=== PATIENT | male | born 1945 | race Caucasian/White ===

== ENCOUNTER 2017-06-27 01:54 | Emergency (ER) | payer OTHER ==
[2017-06-27] MEDS ORDERED: ASPIRIN 81 MG CHEWABLE TAB ONE (02:11)
[2017-06-27] MEDS ORDERED: ASPIRIN 81 MG CHEWABLE TAB PO ONE (02:23)
--- NOTE | 2017-06-27 02:23 | CPEKG ---
Heart Rate: 69 RR Interval: 870 P-R Interval: 184 QRSD Interval: 136 QT Interval: 408 QTC Interval: 437 P Agness: 68 QRS Agness: 2 T Wave Agness: 33 EKG Severity - ABNORMAL ECG - EKG Impression: SINUS RHYTHM EKG Impression: RIGHT BUNDLE BRANCH BLOCK Electronically Signed By: Darya Lima 28-Jun-2017 07:52:40
[2017-06-27 02:37] LABS: % IMMATURE GRANULYOCYTES 0.2 % (0.0-1.1); ABSOLUTE IMMATURE GRANULOCYTES 0.02 10^3/uL (0.00-0.10); ADD DIFF? NO; ADD MORPH? NO; ADD SCAN? NO; ATYPICAL LYMPHOCYTE FLAG 10 (0-99); FRAGMENT RBC FLAG 0 (0-99); HEMATOCRIT 45.4 % (40.0-51.0); HEMOGLOBIN 15.4 g/dL (13.7-17.5); LEFT SHIFT FLG 0 (0-99); LIPEMIA HEMOLYSIS FLAG 90 (0-99); MEAN CELL HEMOGLOBIN 31.7 pg (27.9-34.1); MEAN CELL HEMOGLOBIN CONCENTR. 33.9 g/dL (32.4-36.7); MEAN CELL VOLUME 93.4 fL (81.5-99.8); MEAN PLATELET VOLUME 10.1 fL (8.7-11.7); PLATELET CLUMPS FLAG 10 (0-99); PLATELET COUNT 191 10^3/uL (150-400); RED BLOOD CELL COUNT 4.86 10^6/uL (4.40-6.38)
[2017-06-27 02:45] LABS: ANION GAP 11 mEq/L (8-16); CALCIUM 9.8 mg/dL (8.5-10.4); CARBON DIOXIDE 25 mEq/l (22-31); CHLORIDE 101 mEq/L (97-110); GLOMERULAR FILTRATION RATE > 60; GLUCOSE 83 mg/dL (70-100); POTASSIUM 3.9 mEq/L (3.5-5.2); SODIUM 137 mEq/L (134-144)
[2017-06-27 02:57] LABS: TROPONIN I < 0.012 ng/mL (0.000-0.034)
--- NOTE | 2017-06-27 04:51 | EDPHY ---
H & P Stated Complaint: LEFT STERNAL CP WITH MOVEMENT X4 HRS Time Seen by Provider: 06/27/17 02:09 HPI/ROS: HPI The patient presents with left-sided sharp chest pain which has been present for the last 4 hours, this started in slowly and felt like a muscle strain, it is not associated with any shortness of breath, nausea, vomiting, dizziness or diaphoresis. He has no prior history of similar. He denies any long car trips or airplane flight slightly. He does not have any leg swelling. He denies any recent URI type symptoms. REVIEW OF SYSTEMS Constitutional: No fever, no chills. Eyes: No discharge. ENT: No sore throat. Cardiovascular: No chest pain, no palpitations. Respiratory: No cough, no shortness of breath. Gastrointestinal: No abdominal pain, no vomiting. Genitourinary: No hematuria. Musculoskeletal: No back pain. Skin: No rashes. Neurological: No headache. PMHx: Hypertension, hyperlipidemia Soc Hx: Works as a therapist PHYSICAL General Appearance: Alert, no distress Eyes: Pupils equal and round no pallor or injection ENT, Mouth: Mucous membranes moist Respiratory: There are no retractions, lungs are clear to auscultation Cardiovascular: Regular rate and rhythm Gastrointestinal: Abdomen is soft and non-tender, no masses, bowel sounds normal Neurological: A&O, moves all extremities Skin: Warm and dry, no rashes Musculoskeletal: Neck is supple non tender Extremities: symmetrical, full range of motion Psychiatric: Patient is oriented X 3, there is no agitation Source: Patient Exam Limitations: No limitations - Personal History Current Tetanus/Diphtheria Vaccine: Yes Current Tetanus Diphtheria and Acellular Pertussis (TDAP): Yes - Medical/Surgical History Hx Asthma: No Hx Chronic Respiratory Disease: No Hx Diabetes: No Hx Cardiac Disease: No Hx Renal Disease: No Hx Cirrhosis: No Hx Alcoholism: No Hx HIV/AIDS: No Hx Splenectomy or Spleen Trauma: No Other PMH: HTN, HIGH CHOLESTEROL, DEPRESSION, ADD - Social History Smoking Status: Former smoker Constitutional: Initial Vital Signs Temperature (C) 36.7 C 06/27/17 02:01 Heart Rate 63 06/27/17 02:01 Respiratory Rate 18 06/27/17 02:01 Blood Pressure 143/70 H 06/27/17 02:01 O2 Sat (%) 96 06/27/17 02:01 O2 Delivery Mode Room Air O2 (L/minute) 2 Allergies/Adverse Reactions: No Known Allergies Allergy (Unverified 06/27/17 02:05) Home Medications: Medication Instructions Recorded NK [No Known Home Meds] 06/27/17 Medical Decision Making - Diagnostics EKG Interpretation: EKG: Complete interpretation has been separately recorded in the [facility] archive. Summary impression: Normal sinus rhythm Imaging Results: Chest x-ray two view shows no cardiomegaly, no infiltrate, interpreted by me, radiology interpretation is pending. Imaging: I viewed and interpreted images myself Differential Diagnosis: This is a 71-year-old male with past medical history of hypertension who presents with an episode of chest pain which began about 4 hours prior to presentation while at rest. No associated features, pain is worse with changes in position and improved when he lies still. Initial EKG is unremarkable. Differential diagnosis includes ACS, costochondritis, muscle strain, GERD, anxiety attack. In the emergency department, the patient was monitored for several hours. Serial troponins were checked and were unremarkable. He was chest pain-free. His story is quite atypical for ACS and with normal EKG and troponin, I feel he is suitable for discharge with outpatient follow-up for possible stress test. He is in agreement with this plan. - Data Points Laboratory Results: Laboratory Results 06/27/17 02:20 06/27/17 02:20 Medications Given: Discontinued Medications Aspirin (Aspirin) 324 mg PO EDNOW ONE Stop: 06/27/17 02:24 Last Admin: 06/27/17 02:27 Dose: 324 mg Departure - Departure Disposition: Home, Routine, Self-Care Clinical Impression: Chest pain Condition: Good Instructions: Chest Pain (ED) Additional Instructions: Please return to the emergency room if your worse in any way. You can try ibuprofen 400 mg or acetaminophen 650 mg for this pain. If it persists, you should follow up with your regular doctor. I have given you information for Cardiology for follow-up with a stress test. I recommend that you call in the next few days to arrange for this. Referrals: Diana Deal MD [Primary Care Provider] - As per Instructions Migdalia Guardado MD [Medical Doctor] - As per Instructions
[2017-06-27 05:03] VITALS: BP 129/82; PULSE 67; RESP 16; TEMP 97.5; O2SAT 93
== END 2017-06-27 05:03 | disposition home or self-care (01) ==
DX: R07.9 Chest pain, unspecified (principal); I10 Essential (primary) hypertension; Z87.891 Personal history of nicotine dependence